=== PATIENT | female | born 1940 | race Two or more races ===

== ENCOUNTER 2016-11-28 11:14 | Emergency (ER) | payer MEDICARE, BC ==
[~2016-11-28] VITALS: Ht 157.5 cm; Wt 59.9 kg
[~2016-11-28 11:14] MED LIST: ASPIR 8181 MG ORAL; CALCIUM + D3 E1 EACH PO; CO Q-10100 M1 PO; CRESTOR40 MG ORAL; CYMBALTA60 MG ORAL; DICLOFENAC SODI50 MG ORAL; DIOVAN40 MG ORAL; FISH OIL SOFTG1 EAC1 PO; GLUCOSAMINE1000 M1 PO; HAIR, SKIN & N1 EACH PO; NEURONTIN300 MG PO; PLAVIX75 MG ORAL; PRILOSEC40 MG ORAL; TENORMIN25 MG ORAL; VITAMIN C500 M1 PO; VITAMIN D35000 UNIT PO; ZETIA10 MG ORAL
[2016-11-28] MEDS ORDERED: Morphine Sulfate 4mg/ml Inj ONE (11:53)
[2016-11-28] MEDS ORDERED: Acetaminophen 500mg (ES) tab ORAL ONE (12:00)
[2016-11-28] MEDS ORDERED: Morphine Sulfate 4mg/ml Inj IM ONE (12:00)
--- NOTE | 2016-11-28 12:15 | Emergency Room Report ---
History of Present Illness General Chief Complaint: Upper Extremity Injury Source: Patient, Family Member, Significant Other Present Illness HPI Patient brought in by daughter, states that her mother slipped while getting into the bathtub last night, falling onto her left side and striking her left shoulder to the ground. This was not witnessed but her was at home. No loss of consciousness no striking of the head reported patient try to get some rest and then woke up with significant discomfort in the left shoulder. Patient states that he is hard to lift rotate or elevated the shoulder. No complaints of discomfort in the elbow wrists, hips knees ankles or back. Patient does have some chronic medical history, was on blood thinners. She takes medications for arthritis in general. Allergies: Coded Allergies: No Known Allergies (Unverified , 06/22/13) Patient History Limited by: language barrier - translation through daughter Past Medical History: see triage record, HTN, CAD, other - arthritis Social History: Denies: alcohol use, drug use, smoking Immunizations: UTD Nursing Documentation-PMH Hx Cardiac Problems: Yes - High choldesterol; Stent ("3 0r 4") Hx Hypertension: Yes Hx Cancer: No Hx Gastrointestinal Problems: Yes Hx Neurological Problems: No Review of Systems Constitutional: Denies: fever Eye: Denies: blurred vision ENT: Denies: ear discharge Gastrointestinal: Denies: constipation, diarrhea, nausea, vomiting Musculoskeletal: Reports: joint pain, joint swelling, muscle pain, muscle stiffness, Denies: back pain All Other Systems: negative except mentioned in HPI Physical Exam Vital Signs Date Time Temp Pulse Resp B/P Pulse Ox O2 Delivery O2 Flow Rate FiO2 11/28/16 11:22 98.1 57 18 154/60 98 Room Air Sp02 EP Interpretation: reviewed, normal General Appearance: alert, mild distress - mild moan, holding her left shoulder with right hand Head: atraumatic Eyes: bilateral eye normal inspection ENT: normal ENT inspection, hearing grossly normal, normal voice Neck: normal inspection, full range of motion, supple, no bony tend Respiratory: normal inspection, lungs clear, normal breath sounds, no respiratory distress, no retraction, no wheezing Cardiovascular #1: regular rate, rhythm, no edema Gastrointestinal: normal inspection, normal bowel sounds, non tender, soft, no guarding, no hernia Genitourinary: no CVA tenderness Musculoskeletal: other - pain and tenderness to palpation of left upper shoulder, pain with elevation above 80. No obvious bruising, deformity, crepitus Neurologic: normal inspection, alert, oriented x3, responsive, speech normal Psychiatric: normal inspection, judgement/insight normal, mood/affect normal Skin: normal inspection, normal color, no rash Medical Decision Making Diagnostic Impression: Primary Impression: Injury of upper extremity Additional Impression: Injury of left upper extremity ER Course Patient presenting with fall yesterday with shoulder discomfort. She she does not obviously have a deformed shoulder but her pain is significant. We'll do x- rays of the shoulder and arm as well as chest. Pain control to be provided initially prior to evaluation further. Family present at bedside understands plan of care. Patient received pain control the ER with ibuprofen and morphine. X-rays do reveal a fracture of the scapula which I have interpreted, and then confirmed with radiology discussion. Patient will followup with an orthopedist, referral for Dr. Chris flaherty. Family also states that they have an orthopedist that they would prefer to use. Copies of CTs as well as initial report provided for family. Prescription for pain control as well as stool softener and sling for the arm provided. Overall neurovascularly intact. Family will followup with orthopedist. Rhythm Strip Diag. Results Rhythm Strip Time: 13:51 EP Interpretation: yes Rate: 78 Rhythm: NSR, no PVC's, no ectopy Chest X-Ray Diagnostic Results Time: 13:51 EP Interpretation: Yes Findings: no consolidation, no effusion, no pneumothorax, no acute cardiopulmonary disease Number of Views: 2 Other X-Ray Diagnostic Results Other X-Ray Diagnostic Results : X-Ray Ordered: shoulder and humerus. Date: Nov 28, 2016 Time: 13:52 EP Interpretation: No Findings: other - scapular fracture, nondisplaced Number of Views: 4 Last Vital Signs Date Time Temp Pulse Resp B/P Pulse Ox O2 Delivery O2 Flow Rate FiO2 11/28/16 11:22 98.1 57 18 154/60 98 Room Air Scripts Docusate Sodium* (COLACE*) 100 Mg Capsule 100 MG ORAL DAILY for 30 Days, #30 CAP Prov: Harley Blackwood MD 11/28/16 Hydrocodone Bit/Acetaminophen 5-325* (NORCO 5-325*) 1 Each Tablet 1 TAB ORAL Q6H Y for For Pain, #20 TAB 0 Refills Prov: Harley Blackwood MD 11/28/16 Harley Blackwood MD Nov 28, 2016 12:14
[2016-11-28] MEDS ORDERED: PLAVIX75 MG ORAL (13:13)
[2016-11-28] MEDS ORDERED: PANTOPRAZOLE SO40 MG ORAL (13:13)
[2016-11-28] MEDS ORDERED: MAGNESIUM500 MG PO (13:13)
[2016-11-28] MEDS ORDERED: CALCIUM + VIT1 EACH PO (13:13)
[2016-11-28] MEDS ORDERED: SUPER B COMPLE1 EACH PO (13:13)
[2016-11-28] MEDS ORDERED: TENORMIN50 MG ORAL (13:13)
[2016-11-28] MEDS ORDERED: LEXAPRO20 MG ORAL (13:13)
[2016-11-28] MEDS ORDERED: GABAPENTIN300 MG ORAL (13:13)
[2016-11-28] MEDS ORDERED: COQ1050 MG PO (13:13)
[2016-11-28] MEDS ORDERED: FLAX SEED OIL1000 MG PO (13:13)
[2016-11-28 13:14] VITALS: BP 132/49
[2016-11-28] MEDS ORDERED: NORCO 5-325 TA1 EACH ORAL (13:50)
[2016-11-28] MEDS ORDERED: COLACE100 MG ORAL (13:50)
[2016-11-28 14:12] VITALS: BP 132/49
--- NOTE | 2016-11-29 10:29 | Diagnostic Imaging Report ---
Indication: Trauma Comparison: None 2 views of the chest obtained. There is a fracture of the left scapula noted. Bones are osteopenic. Cardiomegaly is noted. Lungs are clear. Aorta is moderately calcified. Impression: Left scapula fracture No acute cardiopulmonary abnormalities identified.
--- NOTE | 2016-11-29 10:31 | Diagnostic Imaging Report ---
Indication: Pain Findings: 3 views of the left shoulder were obtained. There is evidence of an acute fracture involving the scapular body with involvement of the area just below the glenoid. There is no intra-articular involvement definitely seen on this study. CT may be helpful for further evaluation. There is no malalignment. The visualized humerus appears intact. Bones are osteopenic. Impression: Acute scapular fracture
--- NOTE | 2016-12-09 12:59 | Diagnostic Imaging Report ---
Indication: Pain Findings: 2 views of the left humerus were obtained. No fracture of the humerus identified. There is a fracture of the scapula better demonstrated on the left shoulder series. Impression: No fracture of the humerus identified.
== END 2016-11-28 14:12 | disposition home or self-care (01) ==
LOC: EMR 13:40
DX: S42.112A Displaced fracture of body of scapula, left shoulder, initial encounter for closed fracture (principal); W01.198A Fall on same level from slipping, tripping and stumbling with subsequent striking against other object, initial encounter; Y92.012 Bathroom of single-family (private) house as the place of occurrence of the external cause; I10 Essential (primary) hypertension; I25.10 Atherosclerotic heart disease of native coronary artery without angina pectoris
CPT/HCPCS: 71020; 73030; 73060; 96372; 99284; J2270